=== PATIENT | female | born 1985 | race Caucasian/White ===

== ENCOUNTER 2021-09-15 08:15 | Outpatient (RCR) | payer BC, SELFPAY | END 2021-12-08 11:18 | disposition home or self-care (01) | PROVIDERS: Visit Provider Physician Assistant Medical | DX: M25.512 Pain in left shoulder (principal); M99.07 Segmental and somatic dysfunction of upper extremity; Z51.89 Encounter for other specified aftercare ==

== ENCOUNTER 2022-06-03 08:47 | Day surgery (SDC) | payer BC, SELFPAY ==
[2022-06-03] VITALS (12 sets, daily range): BP systolic 91–112; BP diastolic 50–87; PULSE 60–90; RESP 16–24; TEMP 36.4–36.9; O2SAT 95–100; BMI 24.8
--- NOTE | 2022-06-03 09:19 | SUR.PREOP ---
Patient provided home covid negative results to RN.
[2022-06-03 09:40] LABS: Ur HCG Qualitative* Negative (Negative)
[2022-06-03] MEDS: SODIUM CHLORIDE 0.9 % (FLUSH) 10 ML SYRINGE IVF (09:41)
[2022-06-03] MEDS: LACTATED RINGERS 1000 ML 1,000 ML 100 ML IV (09:41)
--- NOTE | 2022-06-03 10:00 | W.ANESCHARGE ---
Anesthesia Charges Start Date/Time Anesthesia Start Date: 06/03/22 Anesthesia Start Time: 11:11 Stop Date/Time Anesthesia Stop Date: 06/03/22 Anesthesia Stop Time: 11:56
[2022-06-03] MEDS: MUPIROCIN 1 GM PACKET 1 APPLIC TOPICAL (11:33)
[2022-06-03] MEDS: BUPIVACAINE 0.5 %/EPI 1:200K 30 ML INJECTION (11:33)
[2022-06-03] MEDS: COCAINE HCL 4 % 4 ML SOLUTION NOSTRIL-B (11:33)
[2022-06-03] MEDS: AYR SALINE NASAL GEL 1 APPLIC NOSTRIL-B (11:36)
--- NOTE | 2022-06-03 11:42 | P.ENTPROC_ITS ---
Procedure Note Date of procedure: 06/03/22 Procedure: Preoperative diagnosis deviated septum nasal obstruction inferior turbinate hypertrophy nasal headache right middle turbinate hypertrophy Postoperative diagnosis same Procedure nasal septoplasty submucous partial resection bilateral inferior turbinates Under general endotracheal anesthesia patient was prepped and draped in usual fashion and the nose injected and decongested. A right hemitransfixion incision was made left anterior and posterior tunnels were created. A vertical incision was made through the cartilage and a right posterior tunnel created. The posterior deflected portions of septal bone and cartilage were resected a large piece was trimmed and returned to intraseptal space. A 1 cm horizontal drainage incision was made left inferior septal flap to allow drainage. The inferior turbinates were outfractured. A stab incision was made in the anterior head of the right inferior turbinate a tunnel created with a [place] dissector. A conservative anterior submucous resection was performed with Shawn forceps. Coblation was used to cauterize intramurally more posteriorly. This was repeated on the left side in identical fashion. The right middle turbinate was simply crushed with the Dirk forceps. Hemitransfixion was closed with 2 4-0 chromic sutures and silastic stents secured with 3-0 nylon. Merocel packing was trimmed lengthwise coated with Bactroban and placed beneath the middle turbinates on each side. The patient procedure well was taken recovery in satisfactory condition. Blood loss during procedure less than 50 mL. Surgeon: Sebas Mccoy MD
--- NOTE | 2022-06-03 11:57 | W.ANESCHARGE ---
Anesthesia Charges Start Date/Time Anesthesia Start Date: 06/03/22 Anesthesia Start Time: 11:11 Stop Date/Time Anesthesia Stop Date: 06/03/22 Anesthesia Stop Time: 11:56
--- NOTE | 2022-06-03 12:25 | SUR.PHASEI ---
patient met discharge criteria per anesthesia
--- NOTE | 2022-06-03 12:55 | SUR.PHASEII ---
Changed one nasal dressing. Minimal bloody drainage on dressing.
== END 2022-06-03 13:35 | disposition home or self-care (01) ==
PROVIDERS: Visit Provider Otolaryngology
PROC: (CPT 30520; principal; 2022-06-03 10:30)
DX: J34.2 Deviated nasal septum (principal); J34.3 Hypertrophy of nasal turbinates; J34.89 Other specified disorders of nose and nasal sinuses; R51.9 Headache, unspecified
CPT/HCPCS: 30520; 30140; 00160; 81025; A9270; J0330; J1100; J1200; J2405; J2704; J3010; J3490; J7120